=== PATIENT | male | born 1985 | race Caucasian/White ===

== ENCOUNTER 2020-10-12 07:28 | Emergency (ER) | payer BC, OTHER ==
[2020-10-12 07:36] VITALS: RESP 18; TEMP 98.3
[2020-10-12] MEDS ORDERED: SODIUM CHLORIDE 0.9% 1,000 ML IV STA (07:51)
[2020-10-12] MEDS ORDERED: KETOROLAC 15 MG/ML 1 ML VIAL IVP STA (07:51)
[2020-10-12] MEDS ORDERED: oxyCODONE-APAP 10-325MG 1 EACH TAB PO STA (07:52)
--- NOTE | 2020-10-12 07:54 | ED ---
General Adult HPI - General Chief complaint: Back Pain/Injury Stated complaint: Back Pain Time Seen by Provider: 10/12/20 07:37 Source: patient Mode of arrival: ambulatory Limitations: no limitations - History of Present Illness Initial comments: Dictation was produced using [employer] dictation software. please excuse any grammatical, word or spelling errors. Chief Complaint: 35-year-old male presents with back pain History of Present Illness: 35-year-old male presents to emergency with 10 days of back pain. 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 He works on his feet a lot. 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 Patient states that his back pain especially with various movements. Denies any numbness and parest hesias to the lower extremities. No saddle anesthesia. No fevers. No urinary incontinence or retention. Patient states at rest he feels fine. Feels worse whenever he has to stand. No constitutional symptoms. Patient had a similar episode 10 years ago. States this morning his pain was severe to the point where he had to crawl. He states pain is severe localized to his lower bilateral soft tissue areas. The ROS documented in this emergency department record has been reviewed and confirmed by me. Those systems with pertinent positive or negative responses have been documented in the HPI. All other systems are other negative and/or noncontributory. PHYSICAL EXAM: General Impression: Alert and oriented x3, not in acute distress HEENT: Normocephalic atraumatic, extra-ocular movements intact, pupils equal and reactive to light bilaterally, mucous membranes moist. Cardiovascular: Heart regular rate and rhythm Chest: Able to complete full sentences, no retractions, no tachypnea Abdomen: abdomen soft, non-tender, non-distended, no organomegaly Musculoskeletal: Pulses present and equal in all extremities, no peripheral edema Motor: no focal deficits noted Neurological: CN II-XII grossly intact, no focal motor or sensory deficits noted Skin: Intact with no visualized rashes Psych: Normal affect and mood ED course: 35-year-old male with back pain. Vital Signs upon arrival are within acceptable limits. Patient has no high-risk features. Clinical presentation consistent with lower back strain. Lumbar x-ray shows mild general changes in L5-S1 disc. Patient reevaluated after having been given IM and by mouth analgesia. Patient reevaluated at bedside at 8:50 AM found to be in stable medical condition. He states his symptoms are slightly improved. He is told to go home rest. Patient counseled on back exercises. - Related Data Previous Rx's Medication Instructions Recorded HYDROcodone/APAP 5-325MG [Arnold 1 tab PO Q6HR PRN 3 Days #12 tab 10/12/20 5-325] methocarbamoL [Robaxin] 1,000 mg PO TID PRN #24 tab 10/12/20 Allergies Allergy/AdvReac Type Severity Reaction Status Date / Time shellfish derived [Shellfish] Allergy Abdominal Verified 10/12/20 07:35 Pain Review of Systems ROS Statement: Those systems with pertinent positive or pertinent negative responses have been documented in the HPI. ROS Other: All systems not noted in ROS Statement are negative. Past Medical History Past Medical History: No Reported History History of Any Multi-Drug Resistant Organisms: None Reported Past Surgical History: No Surgical Hx Reported Past Psychological History: No Psychological Hx Reported Smoking Status: Never smoker Past Alcohol Use History: Occasional Past Drug Use History: None Reported General Exam Limitations: no limitations Course Vital Signs 10/12/20 07:33 Temperature 98.3 F Pulse Rate 59 L Respiratory 18 Rate Blood Pressure 141/89 O2 Sat by Pulse 99 Oximetry Disposition Clinical Impression: Back strain Disposition: HOME SELF-CARE Condition: Good Instructions (If sedation given, give patient instructions): Acute Low Back Pain (ED) Prescriptions: HYDROcodone/APAP 5-325MG [Arnold 5-325] 1 tab PO Q6HR PRN 3 Days #12 tab PRN Reason: Severe Pain methocarbamoL [Robaxin] 1,000 mg PO TID PRN #24 tab PRN Reason: Pain Is patient prescribed a controlled substance at d/c from ED?: Yes If prescribed controlled substance>3 days was MAPS reviewed?: Prescribed <3 Days Referrals: Reny Stallworth DO [Doctor of Osteopathic Medicine] - 1-2 days
[2020-10-12] MEDS ORDERED: LIDOCAINE 5% PATCH TOPICAL STA (08:04)
--- NOTE | 2020-10-12 08:30 | XR ---
EXAMINATION TYPE: XR lumbar spine 2 or 3V DATE OF EXAM: 10/12/2020 Comparison: None Clinical History: 35-year-old male pain Findings: 5 lumbar type vertebral bodies. Mild endplate spondylosis L5-S1. Vertebral body heights are preserved and alignment is maintained. Impression: There may be mild early degenerative disc disease at L5-S1. No vertebral compression collapse or jordan lignment.
[2020-10-12 09:07] VITALS: BP 110/73; PULSE 61
== END 2020-10-12 09:05 | disposition home or self-care (01) ==
LOC: EC 07:28
DX: S39.012A Strain of muscle, fascia and tendon of lower back, initial encounter (principal); X58.XXXA Exposure to other specified factors, initial encounter
CPT/HCPCS: 72100; 99283; 96374; J1885

== ENCOUNTER → 2022-07-20 | Outpatient (CLI) | payer BC ==
--- NOTE | 2022-07-20 15:50 | P.SLEEP ---
History of Present Illness DATE: 07/20/2022 CONSULTATION/NEW PATIENT EVALUATION HISTORY OF PRESENT ILLNESS/SLEEP-WAKE EVALUATION: 37-year-old gentleman had been evaluated in the sleep center for possible obstructive sleep apnea hypopnea syndrome. SLEEP SCHEDULE: Usually sleep schedule from 11:30 PM to 6:30 AM 7 days a week. FALLING ASLEEP: No problems with falling asleep. DURING SLEEP: According to patient he has loud snoring. Patient wakes up from sleep once with nocturia No history of hypnogogical hallucinations, sleep paralysis, or cataplexy. DURING THE DAY/WAKE STATE: Patient always feel tired. [place] sleepiness scale is in very high range of 18. Usually patient doesn't take naps. PAST MEDICAL HISTORY: Acid reflux. PAST SURGICAL HISTORY: None. MEDICATIONS: None. SOCIAL HISTORY: Negative for smoking, alcohol consumption occasional. FAMILY HISTORY: Positive for obstructive sleep apnea by several family members, stroke, heart problems, hypertension, diabetes. REVIEW OF SYSTEMS: Feeling tiredness all the time and sleepiness. No fevers. No double vision. No recent chest pain. No shortness of breath. No abdominal pain. No bleeding episodes. No blood in urine. No seizure episodes. PHYSICAL EXAMINATION: GENERAL: A pleasant patient without any distress. VITAL SIGNS: BP 131/82 , HR 78 , RR 16 , weight 231 pounds, height 5 foot 9.5 inches, body mass index 33.6, temperature 98.0, oxygen saturation at room air 98% . HEENT: PERRLA, EOMI. Evaluation of oropharynx showed tongue protrudes midline, low position of soft palate Mallampati 4. NECK: Supple. No JVD. Thyroid is not palpable. 17 inches in circumference. LUNGS: Clear to percussion and to auscultation. Good air exchange. No wheezing or rhonchi. HEART: S1, S2 regular. No murmurs, gallops or rubs. ABDOMEN: Soft and nontender. Bowel sounds are present. No organomegaly appreciated. EXTREMITIES: No clubbing or cyanosis. EXHIBITS COORDINATOR: Awake, alert, and oriented x3. Cranial nerves 2 to 7 intact. There is no fasciculation or atrophy noted. No focal deficits observed. ASSESSMENT: 1. Loud snoring, extremely low position of soft palate Mallampati 4, wide neck 17 inches in circumference, sleepiness [place] Sleepiness Scale is 18. Family history of obstructive sleep apnea. Obstructive sleep apnea hypopnea syndrome. 2. Obesity body mass and is 33.6. 3. History of acid reflux. PLAN: 1. Home sleep apnea test for evaluation of patient's breathing during sleep. 2. CPAP/BiPAP titration if sleep study confirms severe obstructive sleep a pnea-hypopnea syndrome. 3. Preferable position during sleep on the side. 4. No driving if patient feels any sleepiness. Patient is aware of civil and criminal liability for unsafe driving. 5. Sleep hygiene with regular sleep time for at least 7.5-8 hours. 6. Watching and losing weight. Thank you very much for referring this patient for consultation. Sincerely, Julio César Vieira MD, PhD, FAASM. Diplomat of [place] [employer], Sleep Medicine Board by [place] [employer] [place] [employer] Supply [employer] [facility] Past Medical History Past Medical History: No Reported History History of Any Multi-Drug Resistant Organisms: None Reported Past Surgical History: No Surgical Hx Reported Past Psychological History: No Psychological Hx Reported Smoking Status: Never smoker Past Alcohol Use History: Occasional Past Drug Use History: None Reported Medications and Allergies Home Medications Medication Instructions Recorded Confirmed Type HYDROcodone/APAP 5-325MG [Freedom 1 tab PO Q6HR PRN 3 Days #12 tab 10/12/20 Rx 5-325] methocarbamoL [Robaxin] 1,000 mg PO TID PRN #24 tab 10/12/20 Rx Allergies Allergy/AdvReac Type Severity Reaction Status Date / Time shellfish derived [Shellfish] Allergy Abdominal Verified 10/12/20 07:35 Pain Sleep Note - Sleep Note Sleep Note: Temperature: Pulse Rate: Respiratory Rate: Blood Pressure: SpO2: Height: Weight: BMI: Neck Circumference:
== END ==
LOC: SLEEP 15:07
PROVIDERS: ATTEND Internal Medicine
DX: G47.33 Obstructive sleep apnea (adult) (pediatric) (principal); E66.01 Morbid (severe) obesity due to excess calories; K21.9 Gastro-esophageal reflux disease without esophagitis; Z68.33 Body mass index [BMI] 33.0-33.9, adult; Z99.89 Dependence on other enabling machines and devices; Z91.013 Allergy to seafood
CPT/HCPCS: 99211

== ENCOUNTER → 2022-08-31 | Outpatient (CLI) | payer BC ==
--- NOTE | 2022-08-31 11:44 | CA ---
Stress Echo Report Daniele Joe Age: 37 Gender: M : 1985 Exam Date: 08/31/2022 10:42 Exam Location: [place] [facility] Ht (in): 69 Wt (lb): 235 Ordering Physician: Bill Mcclellan MD Referring Physician: Bill Mcclellan MD Bookbinding Machine Operator: Germania Landin RDCS Technologist Procedure CPT: Indication: R07.89 other chest pain ICD-9 Codes: Rhythm: Patient History: Asymptomatic Cardiac Medications: No cardiac medications Medications in past 24 hours: Contrast: Stress Results Protocol: Andres Total dose(mL): Exercise Duration (min:sec): 13:[address] Depression (mm): Angina Score: Noland Score: METS: 13.9 Resting HR: 82 Resting BP: 101 / 54 Peak HR: 165 Peak BP: 147 / 84 Max Predicted HR: 185 89 % Max Predicted HR Target HR: 157 Double Product: 10199 Stress Summary: The patient's target heart rate was achieved BP Response: Normal Reason for Termination: MAX EXERTION/TARGET HR Cardiac Symptoms: NO SYMPTOMS ECG Analysis Resting ECG: Stress ECG: Arrhythmia: Echo Analysis Resting Echo: Peak Echo Analysis: MEASUREMENTS (Male/Female) Normal Values CONCLUSIONS Patient underwent exercise stress echo with a Andres protocol treadmill stress test. Patient exercised into Stage 5 for a total of 13 minutes 30 seconds reaching a total of 13.9 METS. Patient's maximum heart rate was 165 which represented 89 % age- predicted maximum heart rate. Stress EKG portion: At baseline patient's EKG showed normal sinus rhythm, normal axis, minimal Q-wave lead 2 and aVF, mild J-point elevation inferiorly and laterally without significant ST depressions or T-wave inversions.. At peak exercise, EKG showed no significant change from baseline. Stress echo portion: 2-D echocardiogram was performed in the parasternal long, personal short, apical 2 and apical four-chamber views at rest, peak exercise and in recovery. At baseline, echocardiogram showed left ventricular ejection fraction 55% without wall motion abnormalities. With peak exercise, echocardiogram shows improvement in left ventricular ejection fraction, increase contractility, decrease in left ventricular end systolic dimension without wall motion abnormalities consistent with a normal response to exercise. Conclusions: 1. Normal EKG and echo response to exercise without evidence of inducible ischemia. 2. Excellent exercise capacity. Dr. Migel Edge DO (Electronically Signed) Final Date: 31 Aug 2022 11:43
== END | disposition home or self-care (01) ==
LOC: RADNMMAIN 09:54
PROVIDERS: ATTEND Family Medicine
DX: R07.89 Other chest pain (principal)
CPT/HCPCS: 93351